=== PATIENT | female | born 1965 | race Caucasian/White ===

== ENCOUNTER → 2016-12-18 | Outpatient (CLI) | payer OTHER | END | disposition home or self-care (01) | LOC: RD 16:42 → CT 16:42 | PROC: BQ2 Imaging, Non-Axial Lower Bones, Computerized Tomography (CT Scan) (ICD-10-PCS; principal; 2016-12-18) | DX: S92.402A Displaced unspecified fracture of left great toe, initial encounter for closed fracture (principal); X58.XXXA Exposure to other specified factors, initial encounter; Y92.9 Unspecified place or not applicable ==